=== PATIENT | male | born 1950 | race Hispanic/Latino ===

== ENCOUNTER 2020-09-21 09:27 | Emergency (ER) | payer MEDICARE ==
[~2020-09-21] VITALS: Ht 170.2 cm; Wt 94.3 kg
[2020-09-21] MEDS ORDERED: LIDOCAINE 4% PATCH TP STA (09:33)
[2020-09-21] MEDS ORDERED: DEXAMETHASONE 4 MG TAB PO STA (09:33)
[2020-09-21] MEDS ORDERED: KETOROLAC TROMETHAMINE 30 MG/ML VIAL IM STA (09:33)
[2020-09-21] MEDS ORDERED: ACETAMINOPHEN 325 MG TAB PO ONE (09:45)
[2020-09-21] MEDS ORDERED: LIDOPATCH1 EACH TOP (09:57)
[2020-09-21 10:32] VITALS: BP 141/74
== END 2020-09-21 10:34 | disposition home or self-care (01) ==
LOC: ER 09:34
DX: M54.5 Low back pain (principal)
CPT/HCPCS: 99282; J1885; J8540